=== PATIENT | male | born 1950 | race Caucasian/White ===

== ENCOUNTER 2020-03-25 15:29 | Inpatient (IN) | payer BC, OTHER ==
[~2020-03-25] VITALS: Ht 180.3 cm; Wt 75.1 kg
[2020-03-25 16:10] LABS: BASOPHILS # (AUTO) 0.07 x10^3/uL (0-0.1); BASOPHILS % (AUTO) 1 % (0-1); EOSINOPHILS # (AUTO) 0.11 x10^3/uL (0-0.4); EOSINOPHILS % (AUTO) 1 % (1-7); LYMPHOCYTES # (AUTO) 1.62 x10^3/uL (1-3.4); LYMPHOCYTES % (AUTO) 18 % (22-44); MD NO; MEAN CORPUSCULAR HEMOGLOBIN 30.2 pg (27.5-34.5); MEAN CORPUSCULAR HGB CONC 32.7 g/dL (33.2-36.2); MEAN CORPUSCULAR VOLUME 92.2 fL (81-97); MEAN PLATELET VOLUME 7.7 fL (7.4-10.4); MONOCYTES # (AUTO) 0.71 x10^3/uL (0.2-0.8); MONOCYTES % (AUTO) 8 % (2-9); NEUTROPHILS # (AUTO) 6.39 x10^3/uL (1.8-6.8); NEUTROPHILS % (AUTO) 72 % (42-75); PLATELET COUNT 357 x10^3/uL (130-400); RED CELL DISTRIBUTION WIDTH 13.6 % (9.4-14.8)
[2020-03-25] MEDS ORDERED: AMLO10TA8 PO (16:11)
[2020-03-25] MEDS ORDERED: LEVE500T54 PO (16:11)
[2020-03-25] MEDS ORDERED: LEVE750T37 PO (16:17)
[2020-03-25] MEDS ORDERED: ALBUTEROL INHALER (16:17)
[2020-03-25] MEDS ORDERED: FLUO40CA2 PO (16:17)
[2020-03-25 16:21] LABS: ALANINE AMINOTRANSFERASE 10 U/L (12-78); ALBUMIN 3.3 g/dL (3.4-5.0); ANION GAP 9 mmol/L (5-15); CALCIUM 8.9 mg/dL (8.5-10.1); CHLORIDE 108 mmol/L (98-107); CREATININE 1.29 mg/dL (0.7-1.3)
[2020-03-25 16:26] LABS: ALKALINE PHOSPHATASE 86 U/L (45-117); BILIRUBIN,TOTAL 0.5 mg/dL (0.2-1.0); TOTAL PROTEIN 7.4 g/dL (6.4-8.2); TROPONIN I < 0.015 ng/mL (0.000-0.045)
[2020-03-25] MEDS ORDERED: OMNIPAQUE 350 MG/ML, 75ML BOTTLE ONE (17:27)
--- NOTE | 2020-03-25 18:00 | NUR ---
ERP WAS IN TO REVIEW CTA RESULTS AND PLAN FOR ADMISSION WITH PT.
--- NOTE | 2020-03-25 18:47 | NUR ---
Yoana garcia in [facility] - 03/25/20 at 1858 by MICHAEL BEDSIDE REPORT RECEIVED FROM GARD[facility] LOZADA, PT CARE TO BE TRANSFERRED AT THIS TIME.
--- NOTE | 2020-03-25 18:48 | NUR ---
PT CAME INTO ED TODAY DUE TO A CORRAL THAT WOULD NOT SUBSIDE, SOB AND COUGHING, PT DOES HAVE A HX OF COPD. PT RESPIRATIONS ARE EVEN BILATERALLY. DENIES TRAUMA. GROSS NEURO INTACT. FIRST CONTACT: PT SITTING UP ON CATHERINE, NAD, AT BS. PT BEING ADMITTED FOR A MASS ON RIGHT LUNG AND CHEST PAIN. [facility] AT FOR EVAL AND POC. TM.
--- NOTE | 2020-03-25 18:58 | NUR ---
STAFF BOARD REASSIGNED, PT CARE TRANSFERRED BACK TO [facility] LOZADA AT THIS TIME.
[2020-03-25] MEDS ORDERED: BISACODYL 10 MG SUPP PR PRN (19:00)
[2020-03-25] MEDS ORDERED: POLYETHYLENE GLYCOL 17 GM PACKET PO PRN (19:00)
[2020-03-25] MEDS ORDERED: ONDANSETRON ODT 4 MG PO PRN (19:00)
--- NOTE | 2020-03-25 19:36 | NUR ---
TP RN: SPOKE WITH HOSPITALIST (AMBERLY Hickman NP), PT TO GO TO ONCOLOGY.
[2020-03-25] MEDS ORDERED: ALBUTEROL HFA 90 MCG/SPRAY INH PRN (20:00)
--- NOTE | 2020-03-25 20:12 | NUR ---
PT AMBULATED TO BR WITHOUT DIFFICULTY. VSS, REMAINS ON RA, NO SOB AT THIS TIME. SIGNIFICANT OTHER AT BS. SANDWICH AND WATER PROVIDED TO PT, HE UNDERSTANDS POC.
[2020-03-25 20:49] VITALS: BP 157/72
[2020-03-25] MEDS: LEVETIRACETAM 500 MG TABLET PO SCH (21:02)
[2020-03-25] MEDS: AMLODIPINE 5 MG TABLET PO SCH (21:02)
[2020-03-25] MEDS: SODIUM CHLORIDE FLUSH 10ML SYR IVF SCH (21:04)
[2020-03-25] MEDS ORDERED: DIPH25CA61 PO (21:07)
[2020-03-25] MEDS: DIPHENHYDRAMINE 50 MG CAPSULE PO PRN (21:53)
[2020-03-26 02:02] VITALS: BP 136/66
[2020-03-26] MEDS: ACETAMINOPHEN 325 MG TABLET PO PRN ×3 (04:03→21:28)
[2020-03-26 07:05] VITALS: BP 121/68
[2020-03-26] MEDS: LEVETIRACETAM 500 MG TABLET PO SCH ×2 (07:53→20:21)
[2020-03-26] MEDS: AMLODIPINE 5 MG TABLET PO SCH ×2 (07:53→20:21)
[2020-03-26] MEDS: SENNA/DOCUSATE TABLET PO SCH (07:54)
[2020-03-26] MEDS: SODIUM CHLORIDE FLUSH 10ML SYR IVF SCH ×2 (07:54→20:22)
[2020-03-26] MEDS ORDERED: FENTANYL PF 100 MCG/2ML ONE (08:57)
[2020-03-26] MEDS ORDERED: FLUMAZENIL 0.1 MG/1 ML, 5ML ONE (08:57)
[2020-03-26] MEDS ORDERED: NALOXONE 1 MG/ML, 2ML ONE (08:57)
[2020-03-26] MEDS ORDERED: MIDAZOLAM 1 MG/ML, 5ML ONE (08:57)
[2020-03-26] MEDS ORDERED: OMNIPAQUE 350 MG/ML, 100ML BOTTLE ONE (09:24)
[2020-03-26] MEDS ORDERED: GADOTERATE 7.5 MMOL/15 ML SYR ONE (10:47)
[2020-03-26 12:07] VITALS: BP 131/67
[2020-03-26 18:19] VITALS: BP 120/68
[2020-03-26] MEDS: DIPHENHYDRAMINE 50 MG CAPSULE PO PRN (21:28)
[2020-03-27 00:06] VITALS: BP 119/63
[2020-03-27 06:58] VITALS: BP 118/67
[2020-03-27] MEDS: SENNA/DOCUSATE TABLET PO SCH (07:36)
[2020-03-27] MEDS: LEVETIRACETAM 500 MG TABLET PO SCH ×2 (07:36→19:40)
[2020-03-27] MEDS: AMLODIPINE 5 MG TABLET PO SCH ×2 (07:36→19:39)
[2020-03-27] MEDS: SODIUM CHLORIDE FLUSH 10ML SYR IVF SCH ×2 (07:38→19:40)
[2020-03-27] MEDS: ACETAMINOPHEN 325 MG TABLET PO PRN ×3 (08:50→21:09)
[2020-03-27] MEDS: HEPARIN 5,000 UNITS/ML, 1ML SQ SCH ×2 (10:57→17:26)
[2020-03-27 12:08] VITALS: BP 107/65
[2020-03-27 19:23] VITALS: BP 114/60
[2020-03-27] MEDS: DIPHENHYDRAMINE 50 MG CAPSULE PO PRN (21:08)
[2020-03-28 00:20] VITALS: BP 120/63
[2020-03-28] MEDS: HEPARIN 5,000 UNITS/ML, 1ML SQ SCH ×3 (01:45→15:30)
[2020-03-28] MEDS: ACETAMINOPHEN 325 MG TABLET PO PRN ×3 (05:35→20:57)
[2020-03-28 06:51] VITALS: BP 130/66
[2020-03-28] MEDS: SENNA/DOCUSATE TABLET PO SCH (08:21)
[2020-03-28] MEDS: AMLODIPINE 5 MG TABLET PO SCH ×2 (08:21→20:57)
[2020-03-28] MEDS: LEVETIRACETAM 500 MG TABLET PO SCH ×2 (08:21→20:57)
[2020-03-28] MEDS: SODIUM CHLORIDE FLUSH 10ML SYR IVF SCH ×2 (08:22→20:57)
[2020-03-28 13:37] VITALS: BP 117/65
[2020-03-28 19:01] VITALS: BP 128/66
[2020-03-28] MEDS: DIPHENHYDRAMINE 50 MG CAPSULE PO PRN (20:57)
[2020-03-29 00:15] VITALS: BP 127/64
[2020-03-29] MEDS: HEPARIN 5,000 UNITS/ML, 1ML SQ SCH ×3 (02:30→16:55)
[2020-03-29] MEDS: ACETAMINOPHEN 325 MG TABLET PO PRN ×5 (05:22→22:07)
[2020-03-29 06:00] LABS: BASOPHILS # (AUTO) 0.02 x10^3/uL (0-0.1); BASOPHILS % (AUTO) 0 % (0-1); EOSINOPHILS # (AUTO) 0.09 x10^3/uL (0-0.4); EOSINOPHILS % (AUTO) 1 % (1-7); LYMPHOCYTES # (AUTO) 1.35 x10^3/uL (1-3.4); LYMPHOCYTES % (AUTO) 19 % (22-44); MD NO; MEAN CORPUSCULAR HEMOGLOBIN 30.7 pg (27.5-34.5); MEAN CORPUSCULAR HGB CONC 33.3 g/dL (33.2-36.2); MEAN CORPUSCULAR VOLUME 92.2 fL (81-97); MEAN PLATELET VOLUME 8.1 fL (7.4-10.4); MONOCYTES # (AUTO) 0.77 x10^3/uL (0.2-0.8); MONOCYTES % (AUTO) 11 % (2-9); NEUTROPHILS # (AUTO) 4.98 x10^3/uL (1.8-6.8); NEUTROPHILS % (AUTO) 69 % (42-75); PLATELET COUNT 268 x10^3/uL (130-400); RED BLOOD COUNT 3.72 x10^6/uL (4.38-5.82); RED CELL DISTRIBUTION WIDTH 13.6 % (9.4-14.8)
[2020-03-29 06:01] LABS: CHLORIDE 106 mmol/L (98-107)
[2020-03-29 06:08] LABS: ALANINE AMINOTRANSFERASE 10 U/L (12-78); ALBUMIN 2.6 g/dL (3.4-5.0); ALKALINE PHOSPHATASE 70 U/L (45-117); ANION GAP 4 mmol/L (5-15); BILIRUBIN,TOTAL 0.3 mg/dL (0.2-1.0); CALCIUM 8.8 mg/dL (8.5-10.1); CREATININE 0.93 mg/dL (0.7-1.3); TOTAL PROTEIN 6.5 g/dL (6.4-8.2)
[2020-03-29 06:36] VITALS: BP 124/61
[2020-03-29] MEDS: SODIUM CHLORIDE FLUSH 10ML SYR IVF SCH ×2 (09:00→22:09)
[2020-03-29] MEDS: AMLODIPINE 5 MG TABLET PO SCH ×2 (09:17→22:07)
[2020-03-29] MEDS: SENNA/DOCUSATE TABLET PO SCH (09:20)
[2020-03-29] MEDS: LEVETIRACETAM 500 MG TABLET PO SCH ×2 (09:20→22:08)
[2020-03-29 14:29] VITALS: BP 126/69
[2020-03-29 19:00] VITALS: BP 122/50
[2020-03-29] MEDS: DIPHENHYDRAMINE 50 MG CAPSULE PO PRN (22:07)
[2020-03-30] MEDS: ACETAMINOPHEN 325 MG TABLET PO PRN ×5 (02:05→19:51)
[2020-03-30] MEDS: HEPARIN 5,000 UNITS/ML, 1ML SQ SCH ×3 (02:28→18:08)
[2020-03-30 03:43] VITALS: BP 104/59
[2020-03-30 06:01] LABS: BASOPHILS # (AUTO) 0.02 x10^3/uL (0-0.1); BASOPHILS % (AUTO) 0 % (0-1); EOSINOPHILS # (AUTO) 0.17 x10^3/uL (0-0.4); EOSINOPHILS % (AUTO) 2 % (1-7); LYMPHOCYTES # (AUTO) 1.57 x10^3/uL (1-3.4); LYMPHOCYTES % (AUTO) 20 % (22-44); MD NO; MEAN CORPUSCULAR HEMOGLOBIN 30.5 pg (27.5-34.5); MEAN CORPUSCULAR VOLUME 92.4 fL (81-97); MEAN PLATELET VOLUME 8.5 fL (7.4-10.4); MONOCYTES # (AUTO) 0.96 x10^3/uL (0.2-0.8); MONOCYTES % (AUTO) 12 % (2-9); NEUTROPHILS # (AUTO) 5.25 x10^3/uL (1.8-6.8); NEUTROPHILS % (AUTO) 66 % (42-75); PLATELET COUNT 258 x10^3/uL (130-400); RED BLOOD COUNT 3.86 x10^6/uL (4.38-5.82); RED CELL DISTRIBUTION WIDTH 13.1 % (9.4-14.8)
[2020-03-30 06:09] LABS: CHLORIDE 107 mmol/L (98-107)
[2020-03-30 06:31] LABS: ALANINE AMINOTRANSFERASE 9 U/L (12-78); ALBUMIN 2.7 g/dL (3.4-5.0); ALKALINE PHOSPHATASE 64 U/L (45-117); ANION GAP 6 mmol/L (5-15); BILIRUBIN,TOTAL 0.3 mg/dL (0.2-1.0); CREATININE 0.94 mg/dL (0.7-1.3); TOTAL PROTEIN 6.4 g/dL (6.4-8.2)
[2020-03-30 06:36] VITALS: BP 124/57
[2020-03-30] MEDS: LEVETIRACETAM 500 MG TABLET PO SCH ×2 (08:38→19:50)
[2020-03-30] MEDS: SODIUM CHLORIDE FLUSH 10ML SYR IVF SCH ×2 (08:39→19:52)
[2020-03-30] MEDS: AMLODIPINE 5 MG TABLET PO SCH ×2 (08:39→19:51)
[2020-03-30] MEDS: SENNA/DOCUSATE TABLET PO SCH (08:39)
[2020-03-30 12:09] VITALS: BP 112/64
[2020-03-30 19:33] VITALS: BP 131/60
[2020-03-30] MEDS: DIPHENHYDRAMINE 50 MG CAPSULE PO PRN (19:51)
[2020-03-31 01:32] VITALS: BP 104/56
[2020-03-31] MEDS: HEPARIN 5,000 UNITS/ML, 1ML SQ SCH ×2 (02:24→09:18)
[2020-03-31] MEDS: ACETAMINOPHEN 325 MG TABLET PO PRN ×2 (02:26→06:42)
[2020-03-31 06:35] VITALS: BP 110/53
[2020-03-31] MEDS: SODIUM CHLORIDE FLUSH 10ML SYR IVF SCH (09:00)
[2020-03-31] MEDS: LEVETIRACETAM 500 MG TABLET PO SCH (09:19)
[2020-03-31] MEDS: AMLODIPINE 5 MG TABLET PO SCH (09:19)
[2020-03-31] MEDS: SENNA/DOCUSATE TABLET PO SCH (09:19)
== END 2020-03-31 16:53 | disposition home or self-care (01) | DRG 542 ==
LOC: ED 16:29 → EDIP 18:59 → 4NW 20:29
PROVIDERS: ADMIT Internal Medicine; ATTEND Internal Medicine
PROC: 0GB33ZX Excision of Right Adrenal Gland, Percutaneous Approach, Diagnostic (ICD-10-PCS; principal; 2020-03-26)
DX: C79.51 Secondary malignant neoplasm of bone (principal); I71.01 Dissection of thoracic aorta; E46 Unspecified protein-calorie malnutrition; E87.2 Acidosis; R07.89 Other chest pain; D49.1 Neoplasm of unspecified behavior of respiratory system; D64.9 Anemia, unspecified; E27.9 Disorder of adrenal gland, unspecified; I10 Essential (primary) hypertension; J44.9 Chronic obstructive pulmonary disease, unspecified; Z80.3 Family history of malignant neoplasm of breast; Z80.42 Family history of malignant neoplasm of prostate; Z82.49 Family history of ischemic heart disease and other diseases of the circulatory system; Z87.891 Personal history of nicotine dependence; I71.9 Aortic aneurysm of unspecified site, without rupture; Z68.23 Body mass index [BMI] 23.0-23.9, adult
CPT/HCPCS: 36415; 49180; 70553; 71045; 71275; 74177; 77012; 80053; 83880; 84484; 85025; 85379; 88305; 88341; 88342; 93005; 99156; 99157; G0378; J2250; J3010; Q9967; A9575; J2310

== ENCOUNTER 2020-05-14 05:36 | Day surgery (SDC) | payer BC ==
[~2020-05-14] VITALS: Ht 180.3 cm; Wt 74.0 kg
[~2020-05-14 05:36] MED LIST: ALBUTEROL INHALER; AMLO-150 PO; AMLO10TA8 PO; DIPH25CA61 PO; FLUO40CA2 PO; Inhaler INH; LEVE500T54 PO; LEVE750T37 PO
[2020-05-14 06:15] VITALS: BP 145/74
[2020-05-14] MEDS ORDERED: CHLORHEXIDINE 15 ML UDC MM ONE (06:30)
[2020-05-14] MEDS ORDERED: LACTATED RINGERS 1,000 ML IV SCH (06:30)
[2020-05-14] MEDS ORDERED: LIDOCAINE-MPF 1%, 2ML INFIL ONE (06:30)
[2020-05-14] MEDS ORDERED: MIDAZOLAM 1 MG/ML, 2ML ONE (06:58)
[2020-05-14] MEDS ORDERED: FENTANYL PF 100 MCG/2ML ONE (06:59)
[2020-05-14] MEDS ORDERED: PROMETHAZINE 25 MG/ML, 1ML IVPush PRN (07:30)
[2020-05-14] MEDS ORDERED: MEPERIDINE/PF 25MG/0.5ML IVPush PRN (07:30)
[2020-05-14] MEDS ORDERED: morphine SULFATE 10 MG/ML, 1ML IVPush PRN (07:30)
[2020-05-14] MEDS ORDERED: OXYcodone 5 MG/5 ML ORAL.SOL UDC PO PRN (07:30)
[2020-05-14] MEDS ORDERED: HYDROcodone/APAP 7.5-325MG/15ML UDC PO PRN (07:30)
[2020-05-14] MEDS ORDERED: FENTANYL PF 100 MCG/2ML IV PRN (07:30)
[2020-05-14] MEDS ORDERED: EPHEDRINE 50 MG/ML, 1ML ONE (07:43)
[2020-05-14] MEDS ORDERED: DEXAMETHASONE 4 MG/ML, 1ML ONE (07:43)
[2020-05-14] MEDS ORDERED: ONDANSETRON 2MG/ML, 2ML ONE (07:43)
[2020-05-14] MEDS ORDERED: LIDOCAINE 4%, 4 ML SYR/CANN TP ONE (07:43)
[2020-05-14] MEDS ORDERED: SUCCINYLCHOLINE 20 MG/ML, 10ML ONE (07:43)
[2020-05-14] MEDS ORDERED: ROCURONIUM 10MG/ML,5ML ONE (07:43)
[2020-05-14] MEDS ORDERED: PROPOFOL 10 MG/ML, 20ML ONE (07:43)
== END 2020-05-14 10:45 | disposition home or self-care (01) ==
LOC: OUT 05:36
PROVIDERS: ATTEND Internal Medicine
DX: R59.1 Generalized enlarged lymph nodes (principal); Z20.828 Contact with and (suspected) exposure to other viral communicable diseases; C34.90 Malignant neoplasm of unspecified part of unspecified bronchus or lung; C77.1 Secondary and unspecified malignant neoplasm of intrathoracic lymph nodes; J44.9 Chronic obstructive pulmonary disease, unspecified; I10 Essential (primary) hypertension; F41.9 Anxiety disorder, unspecified; F32.9 Major depressive disorder, single episode, unspecified; Z79.899 Other long term (current) drug therapy; Z87.891 Personal history of nicotine dependence; Z95.2 Presence of prosthetic heart valve; Z80.3 Family history of malignant neoplasm of breast; Z82.49 Family history of ischemic heart disease and other diseases of the circulatory system
CPT/HCPCS: 31624; 31652; 36415; 87635; 88172; 88173; 88177; 88305; 93005; J0330; J1100; J2250; J2405; J2704; J3010; J7120; 31622; 31629; J2175

== ENCOUNTER 2020-05-21 20:01 | Emergency (ER) | payer BC ==
[~2020-05-21] VITALS: Ht 180.3 cm; Wt 73.5 kg
--- NOTE | 2020-05-21 20:28 | NUR ---
69 YO M CC OF SOB FOR WEEKS, INCREASING TODAY. PT RECENTLY HERE AND DIAGNOSED FOR [place] CA WITH METS, PLACED ON 5L O2 NC WITH ACTIVITY AND 3 L NC AT REST. OXYGEN UNABLE TO BE DELIVERED TO HOME. 10/10 PAIN THROUGHOUT CHEST AND SPINE.
[2020-05-21] MEDS ORDERED: SODIUM CHLORIDE FLUSH 10ML SYR IVF ONE ×2 (20:30→21:00)
[2020-05-21] MEDS ORDERED: LORazepam 1MG TABLET PO ONE (21:00)
[2020-05-21] MEDS ORDERED: ALBUTEROL/IPRATROPIUM 2.5MG/0.5MG, 3 ML NPPB ONE (21:00)
[2020-05-21 21:11] LABS: BASOPHILS % (AUTO) 1 % (0-1); EOSINOPHILS % (AUTO) 2 % (1-7); LYMPHOCYTES % (AUTO) 12 % (22-44); MEAN CORPUSCULAR HEMOGLOBIN 28.8 pg (27.5-34.5); MEAN CORPUSCULAR HGB CONC 32.6 g/dL (33.2-36.2); MEAN PLATELET VOLUME 7.5 fL (7.4-10.4); MONOCYTES % (AUTO) 11 % (2-9); NEUTROPHILS % (AUTO) 76 % (42-75); PLATELET COUNT 430 x10^3/uL (130-400); RED BLOOD COUNT 3.62 x10^6/uL (4.38-5.82); RED CELL DISTRIBUTION WIDTH 15.3 % (9.4-14.8)
[2020-05-21 21:13] LABS: MD NO
[2020-05-21 21:15] LABS: ALANINE AMINOTRANSFERASE 11 U/L (12-78); ALBUMIN 2.9 g/dL (3.4-5.0); ANION GAP 6 mmol/L (5-15); CALCIUM 8.9 mg/dL (8.5-10.1); CHLORIDE 110 mmol/L (98-107); CREATININE 1.06 mg/dL (0.7-1.3)
[2020-05-21] MEDS ORDERED: LORazepam 1MG TABLET ONE (21:17)
--- NOTE | 2020-05-21 21:18 | NUR ---
PT ON 92% RA
[2020-05-21 21:20] LABS: ALKALINE PHOSPHATASE 84 U/L (45-117); BILIRUBIN,TOTAL 0.4 mg/dL (0.2-1.0); TROPONIN I 0.019 ng/mL (0.000-0.045)
[2020-05-21] MEDS ORDERED: ALBUTEROL/IPRATROPIUM 2.5MG/0.5MG, 3 ML ONE (21:37)
--- NOTE | 2020-05-21 23:15 | NUR ---
assisted primary RN with care attempted to enter room to D/C pt. pt has expressed concern regarding pt O2 saturation. pt is currently 91% on RA. pt is having intermittent coughing and during coughing episodes pt SaO2 to 88%. pt O2 sat between 88 to 92% on RA. 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 pt states that he wants to go home
--- NOTE | 2020-05-21 23:30 | NUR ---
have discussed pt pulse ox with Dr. Campos and pt states that he still wants to be D/C home. pt and at bedside given education regarding F/U and s/sx indicating return. pt also made aware that he may return for tx at any time. pt and verbalized understanding and all questions answered. pt ambulatory, but out of department via WC for comfort.
[2020-05-21 23:33] VITALS: BP 108/55
--- NOTE | 2020-05-21 23:34 | NUR ---
PT SAT 88% ON RA. MADE AWARE, PT CHOICE TO NOT BE ADMITTED. EDUCATED ON RETURNING TO ED IF SOB WORSENS.
[2020-05-22] MEDS ORDERED: OMNIPAQUE 350 MG/ML, 100ML BOTTLE ONE (21:00)
== END 2020-05-22 00:31 | disposition home or self-care (01) ==
LOC: ED 20:40
DX: J44.1 Chronic obstructive pulmonary disease with (acute) exacerbation (principal); I10 Essential (primary) hypertension; Z85.118 Personal history of other malignant neoplasm of bronchus and lung; Z87.891 Personal history of nicotine dependence
CPT/HCPCS: 36415; 71046; 71275; 80053; 83880; 84484; 85025; 93005; 94640; 99285; J7512; Q9967